=== PATIENT | male | born 1975 | race Caucasian/White ===

== ENCOUNTER 2021-05-15 22:21 | Emergency (ER) | payer OTHER ==
[~2021-05-15 22:21] MED LIST: AZITHROMYCIN250 MG PO; FEXOFENADINE-P1 EACH PO
[2021-05-15] MEDS ORDERED: IBUPROFEN800 MG PO (23:53)
[2021-05-15] MEDS ORDERED: AUGMENTIN 875-1 EACH PO (23:53)
== END 2021-05-16 00:24 | disposition home or self-care (01) ==
LOC: FER 22:21
DX: K05.219 Aggressive periodontitis, localized, unspecified severity (principal)
CPT/HCPCS: 96372; J1885; Q0163